=== PATIENT | male | born 1960 | race Two or more races ===

== ENCOUNTER 2022-05-27 04:14 | Day surgery (SDC) | payer OTHER ==
[2022-05-23 10:15] VITALS: BMI 26.9
[2022-05-27] MEDS ORDERED: MIDAZOLAM HCL 2 MG/2 ML SINGLE DOSE VIAL ONE (12:24)
[2022-05-27] MEDS ORDERED: ONDANSETRON 4 MG/2 ML VIAL ONE (12:25)
[2022-05-27] MEDS ORDERED: ceFAZolin 2 GRAM PREMIX BAG IVPB ONE (12:30)
[2022-05-27] MEDS ORDERED: ceFAZolin SODIUM 1 GM VIAL ONE (12:33)
[2022-05-27 13:10] VITALS: TEMP 97.3
[2022-05-27 13:38] VITALS: BP 114/83
[2022-05-27 14:20] VITALS: PULSE 80
[2022-05-27 14:35] VITALS: RESP 15
== END 2022-05-27 14:20 | disposition home or self-care (01) ==
LOC: JASU-SURG 04:14
PROVIDERS: ATTEND Urology
PROC: 0TF4XZZ Fragmentation in Left Kidney Pelvis, External Approach (ICD-10-PCS; principal; 2022-05-27 12:00)
DX: N20.0 Calculus of kidney (principal)